=== PATIENT | male | born 1985 | race Caucasian/White ===

== ENCOUNTER 2017-03-24 15:08 | Emergency (ER) | payer SELFPAY ==
[~2017-03-24] VITALS: Ht 180.3 cm; Wt 90.7 kg
[~2017-03-24 15:08] MED LIST: ACET-2267 PO; ACET-575 PO; AGM875T PO; ALPR1T; ALPR1T PO; AMOX500C2 PO; CEPH500C PO; CLIN300C11 PO; GUAN1TAB21; HYDR-3720 PO; HYDR-3820 PO; IBUP800T26 PO; LISD70CA3; LORA-404 PO; LORA2TAB PO; TRAM50TA2 PO; TRM50T PO
[2017-03-24] MEDS ORDERED: cefTRIAXone 1 GM (ROCEPHIN) VIAL IM ONE (16:15)
[2017-03-24] MEDS ORDERED: DEXAMETHASONE PF 10 MG/ML (DECADRON) VIAL IM ONE (16:15)
[2017-03-24] MEDS ORDERED: LIDOCAINE 1% INJ 20 ML (XYLOCAINE) VIAL INJ ONE (16:15)
[2017-03-24] MEDS ORDERED: CEFD300C3 PO (16:17)
[2017-03-24] MEDS ORDERED: DICL50TA4 PO (16:17)
--- NOTE | 2017-03-24 16:17 | ED EENT ---
History of Present Illness General Chief Complaint: Dental Problems/Pain Stated Complaint: R SIDE MOUTH PAIN Source: patient, RN notes reviewed Exam Limitations: no limitations History of Present Illness Time seen by provider: 16:08 Timing/Duration: gradual (over last 3 days) Severity: moderate Location: mouth (right lower jaw), dental (levi/abscess) Prearrival Treatment: over the counter meds (Ora gel) Modifying Factors: Improves With Other (chewing; swallowing make pain worse) Associated Symptoms: facial pain/swelling, sore throat, tooth pain Allergies and Home Medications Allergies Coded Allergies: clindamycin (Verified Allergy, Severe, 09/24/15) Home Medications Acetaminophen 500 Mg Tablet, 500-1,000 MG PO Q6H PRN for PAIN, (Reported) Acetaminophen/Diphenhydramine 1 Each Tablet, 2 TAB PO HS PRN for SLEEP, ( Reported) Cefdinir 300 Mg Capsule, 300 MG PO BID, #20 Ref 0 Prescribed by: MIN SAAVEDRA on 03/24/17 1617 Cephalexin 500 Mg Capsule, 500 MG PO QID, #30 Prescribed by: JOSESITO BRANNON on 09/25/15 1041 Diclofenac Potassium 50 Mg Tablet, 50 MG PO Q8H PRN for DENTAL PAIN/SWELLING, # 30 Ref 0 Prescribed by: MIN SAAVEDRA on 03/24/17 1617 Hydrocodone/Acetaminophen 1 Each Tablet, 1 TAB PO Q4H PRN for PAIN, (Reported) Lorazepam 2 Mg Tablet, 2 MG PO TID, (Reported) Review of Systems Constitutional: see HPI Ears: See HPI, Pain (right ) Mouth: see HPI, pain, swelling Throat: see HPI, pain All Other Systems Reviewed Negative Unless Noted: Yes (Negative excepted noted.) Past Zcpvgvl-Xkheyj-Eawbnc Hx Patient Social History Recent Foreign Travel: No Contact w/Someone Who Travel: No Recent Hopitalizations: No Seasonal Allergies Seasonal Allergies: No Surgeries HX Surgeries: Yes (SHOULDER SURG) Respiratory Hx Respiratory Disorders: No Cardiovascular Hx Cardiac Disorders: No Neurological Hx Neurological Disorders: No Reproductive System Hx Reproductive Disorders: No Genitourinary Hx Genitourinary Disorders: No Gastrointestinal Hx Gastrointestinal Disorders: No Musculoskeletal Hx Musculoskeletal Disorders: No Endocrine Hx Endocrine Disorders: No HEENT HX ENT Disorders: No Cancer Hx Cancer: No Psychosocial Hx Psychiatric Problems: Yes Behavioral Health Disorders: Anxiety Integumentary HX Skin/Integumentary Disorder: No Blood Transfusions Hx Blood Disorders: No Family Medical History Significant Family History: No Pertinent Family Hx Family Medial History: Cardiovascular disease (paternal grandfather) Neoplasm (mother throat and uterine cancer ) Psychosocial problem (maternal grandmother) Physical Exam Vital Signs Vital Sign - Last 12Hours 03/24/17 16:13 Temp 98.7 Pulse 66 Resp 14 B/P (MAP) 151/104 Pulse Ox 98 O2 Delivery Room Air General Appearance: WD/WN, moderate distress Ears: bilateral ear TM normal Mouth/Throat: dental tenderness, mandibular swelling (right), No pharynx swelling, No pharynx tenderness, No tongue swollen, No tonsillar exudate, No tonsillar swelling, No trismus, No uvula swelling, No voice changes Neck: supple, lymphadenopathy (R) Cardiovascular: regular rate, rhythm Respiratory: no respiratory distress Neurologic/Psychiatric: no motor/sensory deficits, alert, oriented x 3 Skin: warm/dry Progress/Results/Core Measures Results/Orders My Orders Orders - MIN SAAVEDRA DO Dexamethasone Pf Injection (Decadron Pf (03/24/17 16:15) Ceftriaxone Injection (Rocephin Injectio (03/24/17 16:15) Lidocaine 1% Injection (Xylocaine 1% Inj (03/24/17 16:15) Medications Given in ED Current Medications Medications Dose Ordered Sig/Magalie Route Start Time Stop Time Status Last Admin Dose Admin Ceftriaxone Sodium 1,000 mg ONCE ONCE IM 03/24/17 16:15 03/24/17 16:16 DC 03/24/17 16:27 1,000 MG Dexamethasone Sodium Phosphate 10 mg ONCE ONCE IM 03/24/17 16:15 03/24/17 16:16 DC 03/24/17 16:27 10 MG Lidocaine HCl 2.1 ml ONCE ONCE INJ 03/24/17 16:15 03/24/17 16:16 DC 03/24/17 16:27 2.1 ML Vital Signs/I&O Vital Sign - Last 12Hours 03/24/17 03/24/17 16:13 16:44 Temp 98.7 98.7 Pulse 66 86 Resp 14 14 B/P (MAP) 151/104 Pulse Ox 98 98 O2 Delivery Room Air Room Air Departure Impression Impression: Primary Impression: Dental abscess Disposition: 01 HOME, SELF-CARE Condition: Stable Departure-Patient Inst. Decision time for Depature: 16:14 Referrals: NO,LOCAL PHYSICIAN (PCP/Family) Primary Care Physician Patient Instructions: Tooth Abscess (DC) Add. Discharge Instructions: All discharge instructions reviewed with patient and/or family. Voiced understanding. NEED TO GET IN WITH A DENTIST DEE DEE FOR DEFINITIVE EVALUATION AND TREATMENT OF YOUR DENTAL CONDITION. Scripts Diclofenac Potassium (Diclofenac Potassium) 50 Mg Tablet 50 MG PO Q8H Y for DENTAL PAIN/SWELLING, #30 TAB 0 Refills Prov: MIN SAAVEDRA DO 03/24/17 Cefdinir (Cefdinir) 300 Mg Capsule 300 MG PO BID for DENTAL ABSCESS, #20 CAP 0 Refills Prov: MIN SAAVEDRA DO 03/24/17 MIN SAAVEDRA DO Mar 24, 2017 16:17
[2017-03-24 16:44] VITALS: BP 150/98
== END 2017-03-24 16:44 | disposition home or self-care (01) ==
LOC: EDUNIT# 15:08 → ER 15:09
DX: K04.7 Periapical abscess without sinus (principal); F41.9 Anxiety disorder, unspecified; Z98.890 Other specified postprocedural states
CPT/HCPCS: 96372; 99284

== ENCOUNTER 2017-04-07 11:53 | Emergency (ER) | payer SELFPAY ==
[~2017-04-07] VITALS: Ht 180.3 cm; Wt 93.0 kg
[~2017-04-07 11:53] MED LIST changes: +CEFD300C3 PO; +DICL50TA4 PO
--- NOTE | 2017-04-07 13:00 | Diagnostic Imaging Report ---
INDICATION: Redness and swelling, difficulty moving. FINDINGS: There is no abnormal periosteal reaction. No site of abnormal bone production or destruction. There is questionable well-corticated smooth lucency involving the medial margin distal shaft third metatarsal seen in the oblique view. This may be a prominent vascular groove as it is not appreciable in any of the additional views. Correlate with any trauma or an acute onset of pain to that level to more confidently exclude a possible incomplete nondisplaced fracture. Otherwise the osseous structures had an unremarkable appearance. There is no soft tissue gas or foreign body. IMPRESSION: No gas, foreign body or acute periosteal reaction. Seen only in one view there is questionable incomplete lucencies distal shaft third metatarsal likely vascular groove. However in the appropriate scenario extra-articular nondisplaced incomplete fracture could not be convincingly excluded. No other significant finding. Dictated by: Dictated on workstation # [id number]
--- NOTE | 2017-04-07 14:17 | ED Lower Extremity ---
General Chief Complaint: Lower Extremity Stated Complaint: LT FOOT PAIN/SWELLING Nursing Triage Note: pt reports intermittent left foot swelling, bruising, and redness of unknown cause x 2 weeks but worsening this week. states hard to walk when getting out of bed and pain is increasing. states when he raises his 2-5th toes pain radiates. Nursing Sepsis Screen: No Definite Risk Source: patient, spouse Exam Limitations: no limitations History of Present Illness Time seen by provider: 14:16 Initial Comments 31 yo male patient presents to the ED with c/o left foot pain, swelling, and bruising for approx 2 wks. Denies known injury. Pain radiates to the 2-5th toes. Location Injury Occurred: denies known injury Onset: other (2 wks) Method of Injury: unknown Modifying Factors: Worse With Other (worse with ambulation) Allergies and Home Medications Allergies Coded Allergies: clindamycin (Verified Allergy, Severe, 09/24/15) Home Medications Acetaminophen 500 Mg Tablet, 500-1,000 MG PO Q6H PRN for PAIN, (Reported) Hydrocodone/Acetaminophen 1 Each Tablet, 1 EACH PO Q4H PRN for PAIN, #14 Ref 0 Prescribed by: ALPHONSE GÓMEZ on 04/07/17 1434 Constitutional: No chills, No fever, No malaise Respiratory: No cough, No dyspnea on exertion, No short of breath Cardiovascular: No chest pain, No palpitations Musculoskeletal: see HPI, joint pain, joint swelling Skin: change in color (ecchymosis and redness left foot), No lesions, No rash Psychiatric/Neurological: Pre-Existing Deficit (chronic numbness and tingling of the feet (has not seen a doctor for this)) All Other Systems Reviewed Negative Unless Noted: Yes (Negative excepted noted.) Past Fukokcu-Iskmlu-Hzxknh Hx Patient Social History Alcohol Use: Regular Use Recreational Drug Use: No Smoking Status: Current Everyday Smoker Type Used: Cigarettes 2nd Hand Smoke Exposure: Yes Recent Foreign Travel: No Contact w/Someone Who Travel: No Recent Infectious Disease Expo: No Recent Hopitalizations: No Immunizations Up To Date Tetanus Booster (TDap): More than 5yrs Seasonal Allergies Seasonal Allergies: No Surgeries HX Surgeries: Yes (SHOULDER SURG) Surgeries: Orthopedic Respiratory Hx Respiratory Disorders: No Cardiovascular Hx Cardiac Disorders: No Neurological Hx Neurological Disorders: No Reproductive System Hx Reproductive Disorders: No Genitourinary Hx Genitourinary Disorders: No Gastrointestinal Hx Gastrointestinal Disorders: No Musculoskeletal Hx Musculoskeletal Disorders: No Endocrine Hx Endocrine Disorders: No HEENT HX ENT Disorders: No Cancer Hx Cancer: No Psychosocial Hx Psychiatric Problems: Yes Behavioral Health Disorders: Anxiety Integumentary HX Skin/Integumentary Disorder: No Blood Transfusions Hx Blood Disorders: No Reviewed Nursing Assessment Reviewed/Agree w Nursing PMH: Yes Family Medical History Significant Family History: No Pertinent Family Hx Family Medial History: Cardiovascular disease (paternal grandfather) Neoplasm (mother throat and uterine cancer ) Psychosocial problem (maternal grandmother) Physical Exam Vital Signs Vital Sign - Last 12Hours 04/07/17 12:14 Temp 98.8 Pulse 97 Resp 18 B/P (MAP) 135/84 Pulse Ox 97 O2 Delivery Room Air Capillary Refill : Less Than 3 Seconds General Appearance: WD/WN, no apparent distress Cardiovascular: normal peripheral pulses, no edema Legs: bilateral leg non-tender, bilateral leg normal inspection, bilateral leg normal range of motion, bilateral leg no evidence of injury Knees: bilateral knee non-tender, bilateral knee normal inspection, bilateral knee normal range of motion, bilateral knee no evidence of injury Ankles: bilateral ankle non-tender, bilateral ankle normal inspection, bilateral ankle normal range of motion, bilateral ankle no evidence of injury Feet: right foot non-tender, right foot normal inspection, bilateral foot normal range of motion, right foot no evidence of injury, left foot bone tenderness (left 2-4th distal metacarpals), left foot ecchymosis (left 2-4th distal metacarpals), left foot pain, left foot soft tissue tenderness (left 2- 4th distal metacarpals), left foot swelling (left 2-4th distal metacarpals) Neurologic/Tendon: normal sensation, normal motor functions, normal tendon functions, responds to pain, no evidence tendon injury Neurologic/Psychiatric: no motor/sensory deficits, alert, normal mood/affect, oriented x 3 Skin: normal color, warm/dry, ecchymosis (left 2-4th distal metacarpals) Progress/Results/Core Measures Results/Orders My Orders Orders - ALPHONSE GÓMEZ Foot, Left, 3 Views (04/07/17 12:19) Steplite (04/07/17 14:23) Vital Signs/I&O Vital Sign - Last 12Hours 04/07/17 04/07/17 12:14 14:43 Temp 98.8 98.8 Pulse 97 97 Resp 18 18 B/P (MAP) 135/84 Pulse Ox 97 97 O2 Delivery Room Air Blood Pressure Mean: 101 Diagnostic Imaging Diagonstic Imaging: Xray Plain Films/CT/US/NM/MRI: other (left foot) Comments FINDINGS: There is no abnormal periosteal reaction. No site of abnormal bone production or destruction. There is questionable well-corticated smooth lucency involving the medial margin distal shaft third metatarsal seen in the oblique view. This may be a prominent vascular groove as it is not appreciable in any of the additional views. Correlate with any trauma or an acute onset of pain to that level to more confidently exclude a possible incomplete nondisplaced fracture. Otherwise the osseous structures had an unremarkable appearance. There is no soft tissue gas or foreign body. IMPRESSION: No gas, foreign body or acute periosteal reaction. Seen only in one view there is questionable incomplete lucencies distal shaft third metatarsal likely vascular groove. However in the appropriate scenario extra-articular nondisplaced incomplete fracture could not be convincingly excluded. No other significant finding. Dictated by: Dictated on workstation # [id number] Reviewed: Reviewed by Me (radiology report reviewed by me) Departure Communication Progress Notes Is question of a lucency over the shaft of the third metatarsal. Patient does show bruising, swelling, and tenderness in this location. Therefore, this is most likely a nondisplaced or incomplete fracture. Patient placed on a steplite boot. Plan for discharge to home. Impression Impression: Primary Impression: Fracture of metacarpal Qualified Codes: S62.353A - Nondisplaced fracture of shaft of third metacarpal bone, left hand, initial encounter for closed fracture Disposition: 01 HOME, SELF-CARE Condition: Improved Departure-Patient Inst. Decision time for Depature: 14:25 Referrals: NO,LOCAL PHYSICIAN (PCP) Primary Care Physician ESA CROWE MD Patient Instructions: Foot Fracture (DC) Add. Discharge Instructions: All discharge instructions reviewed with patient and/or family. Voiced understanding. Medications as directed. Elevate the left foot on pillows. Ice pack for 20 min intervals as needed for pain. Boot as instructed. Follow- up with Dr. Crowe or the primary care provider of your choice for recheck within the next 7 days. Return to the emergency department for worsened symptoms or any other concerns. Scripts Hydrocodone/Acetaminophen (Hydrocodon -Acetaminophen 5-325) 1 Each Tablet 1 EACH PO Q4H Y for PAIN, #14 TAB 0 Refills Prov: ALPHONSE GÓMEZ 04/07/17 Work/School Note: [employer] ALPHONSE GÓMEZ Apr 07, 2017 2:17 pm
[2017-04-07] MEDS ORDERED: HYDR-3812 PO (14:34)
[2017-04-07 14:43] VITALS: BP 135/84
--- OUTSIDE RECORDS SUMMARY | 2017-04-08 02:09 | XMS REPORT ---
Author Author WALKER MENDOZA [facility] e[employer] Address Unknown Phone Unavailable Care Team Providers Care Compounder Flavorings Name Role Phone WALKER MENDOZA CP Unavailable Allergies, Adverse Reactions, Alerts Substance Reaction Event Type N.K.D.A. Info Not Available Non Drug Allergy Problems Problem Type Condition Code Onset Dates Condition Status Problem Dental caries pit and fissure 521.06 Active Problem Cervicalgia 723.1 Active Problem Pain in joint, shoulder region 719.41 Active Assessment Nevus D22.9 Active Medications Medication Code System Code Instructions Start Date End Date Status Dosage Ativan NDC 0 2 mg 3 times a day 1 tablet TID Procedures Procedure Coding System Code Date Office Visit, Est Pt., Level 3 CPT-4 14889 Jul 03, 2015 Vital Signs Date/Time: Jul 03, 2015 Temperature 97.1 F Weight 202 lbs Height 71 in BMI 28.17 Index Blood Pressure Diastolic 100 mmHg Blood Pressure Systolic 140 mmHg Cardiac Monitoring Heart Rate 80 bpm Results No Known Results Summary Purpose eClinicalWorks Submission
--- OUTSIDE RECORDS SUMMARY | 2017-04-08 02:09 | XMS REPORT ---
Author Author ARIS CARRERO Organization [facility] Address [address] [place] [address] Care Team Providers Care Train Operations Supervisor Name Role Phone ARIS CARRERO Unavailable PROBLEMS Type Condition ICD9-CM Code [id number] Code Onset Dates Condition Status SNOMED Code Problem Pain in joint, shoulder region 719.41 Active 765092836 Problem Dental caries pit and fissure 521.06 Active 224860615 Problem Cervicalgia 723.1 Active 93580062 ALLERGIES Substance Reaction Event Type Date Status Clindamycin HCl anaphylaxis Drug Allergy Jul, Active SOCIAL HISTORY No smoking Hx information available PLAN OF CARE Activity Details Follow Up TE 1 hour Reason: VITAL SIGNS Height 71 in 2016-07-31 Heart Rate 99 bpm 2016-07-31 Blood pressure systolic 147 mmHg 2016-07-31 Blood pressure diastolic 100 mmHg 2016-07-31 MEDICATIONS No Known Medications RESULTS No Results PROCEDURES Procedure Date Ordered Related Diagnosis Body Site COMP ORAL EVALUATION - NEW/EST PT Jul 31, 2016 INTRAORL-PERIAPICAL 1 FILM 90288 Jul 31, 2016 PANORAMIC FILM SEE ALSO CODE [id number] Jul 31, 2016 INTRAORL-PERIAPICAL EA ADD FILM Jul 31, 2016 IMMUNIZATIONS No Known Immunizations
--- OUTSIDE RECORDS SUMMARY | 2017-04-08 02:10 | XMS REPORT | Continuity of Care Document ---
Author Author Formerly [facility] Address Unknown Phone Unavailable Allergies Active Description Code Type Severity Reaction Onset Reported/Identified Relationship to Patient Clinical Status Yes No Known Drug Allergies [id number] Drug Allergy Mild N/A 03/21/2009 Yes clindamycin [id number] Drug Allergy Severe N/A 09/24/2015 Medications Problems Date Dx Coded Attending Type Code Diagnosis Diagnosed By 10/29/2008 SCOTT JARRELL PHD 300.00 AN ANXIETY UNSPEC 10/29/2008 SCOTT JARRELL PHD 311 MO DEPRESSIVE DISORDER NOS 10/29/2008 JOVANY MONTAÑO APRN R 300.00 AN ANXIETY UNSPEC 10/29/2008 JOVANY MONTAÑO APRN R 311 MO DEPRESSIVE DISORDER NOS 09/17/2013 OWEN MONTAÑO APRNINA R 521.06 DENTAL CARIES PIT AND FISSURE 09/17/2013 SABRA FLOWERS JOVANY R 719.41 PAIN IN JOINT INVOLVING SHOULDER REGION 09/17/2013 OWEN MONTAÑO APRNINA R 723.1 CERVICALGIA 04/22/2014 ALPHONSE KUMAR Ot 521.00 UNSPEC DENTAL CARIES 04/22/2014 ALPHONSE KUMAR Ot 522.5 PERIAPICAL ABSCESS 04/22/2014 ALPHONSE KUMAR Ot 525.9 DENTAL DISORDER NOS 07/03/2015 TONJA TAMAYO MD Ot 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, U 09/23/2015 ALPHONSE KUMAR Ot F17.210 NICOTINE DEPENDENCE, CIGARETTES, UNCOMPL 09/23/2015 ALPHONSE KUMAR Ot K02.9 DENTAL CARIES, UNSPECIFIED 09/23/2015 ALPHONSE KUMAR Ot L03.211 CELLULITIS OF FACE 09/23/2015 ALPHONSE KUMAR Ot R59.0 LOCALIZED ENLARGED LYMPH NODES 09/25/2015 CHINO SOTELO MD Ot F17.210 NICOTINE DEPENDENCE, CIGARETTES, UNCOMPL 09/25/2015 CHINO SOTELO MD Ot K02.9 DENTAL CARIES, UNSPECIFIED 09/25/2015 DEEPAK HALL, [place] Ot K04.7 PERIAPICAL ABSCESS WITHOUT SINUS 09/25/2015 DEEPAK HALL, [place] L03.211 CELLULITIS OF FACE 09/25/2015 DEEPAK HALL, [place] T78.3XXA ANGIONEUROTIC EDEMA, INITIAL ENCOUNTER 09/25/2015 DEEPAK HALL, [place] F17.210 09/25/2015 DEEPAK HALL, [place] K02.9 09/25/2015 DEEPAK HALL, [place] K04.7 09/25/2015 DEEPAK HALL, [place] T78.3XXA 06/04/2016 JENY HALL, CHINO [place] Ot K02.9 DENTAL CARIES, UNSPECIFIED 06/04/2016 JENY HALL, [place] K08.9 DISORDER OF TEETH AND SUPPORTING STRUCTU 06/10/2016 JENY HALL, [place] K02.9 DENTAL CARIES, UNSPECIFIED 06/10/2016 JENY HALL, [place] K08.9 DISORDER OF TEETH AND SUPPORTING STRUCTU 03/24/2017 MIN SAAVEDRA DO Ot F41.9 ANXIETY DISORDER, UNSPECIFIED 03/24/2017 QUENTIN DO, [place] K04.7 PERIAPICAL ABSCESS WITHOUT SINUS 03/24/2017 MIN SAAVEDRA DO Ot K13.79 OTHER LESIONS OF ORAL MUCOSA 03/24/2017 QUENTIN DOMIN Ot Z98.890 OTHER SPECIFIED POSTPROCEDURAL STATES 03/26/2017 QUENTIN DOMIN Ot F41.9 ANXIETY DISORDER, UNSPECIFIED 03/26/2017 MIN SAAVEDRA DO Ot K04.7 PERIAPICAL ABSCESS WITHOUT SINUS 03/26/2017 MIN SAAVEDRA DO Ot K13.79 OTHER LESIONS OF ORAL MUCOSA 03/26/2017 QUENTIN DO, [place] Z98.890 OTHER SPECIFIED POSTPROCEDURAL STATES 03/27/2017 QUENTIN DOMIN Ot F41.9 ANXIETY DISORDER, UNSPECIFIED 03/27/2017 QUENTIN DOMIN Ot K04.7 PERIAPICAL ABSCESS WITHOUT SINUS 03/27/2017 QUENTIN DOMIN Ot K13.79 OTHER LESIONS OF ORAL MUCOSA 03/27/2017 QUENTIN DOMIN Ot Z98.890 OTHER SPECIFIED POSTPROCEDURAL STATES Procedures Code [place] [address] URINE DRUG SCREEN (IN-HOUSE) 09/17/2013 Results Encounters ACCT No. Visit Date/Time Discharge Status Pt. Type Provider Facility Loc./Unit Complaint [id number] 09/17/2013 10:29:00 09/17/2013 23: 59:59 CLS Outpatient SABRA DANCE MASTERJOVANY [id number] 10/29/2008 08:36:00 10/29/2008 23: 59:59 CLS Outpatient WESLY HOLLIS, SCOTT Singer [id number] 03/24/2017 15:09:00 2016 16:44:00 DIS Emergency MIN SAAVEDRA DO [facility] ER R SIDE MOUTH PAIN [id number] 06/04/2016 13:06:00 2015 13:59:00 DIS Emergency CHINO FERMIN MD [facility] ER TOOTH ACHE/R SIDE MOUTH SWELLING INTO NECK [id number] 09/24/2015 16:29:00 2015 10:47:00 DIS Inpatient CHINO SOTELO MD [facility] 4TH EXTENSIVE CELLULITIS/ABSCESS LL JAW, FAILED OP ANTI [id number] 09/23/2015 10:50:00 2015 23:59:59 CLS Emergency ALPHONSE KUMAR [facility] ER DENTAL ABSCESS [id number] 07/03/2015 14:00:00 2014 14:53:00 DIS Emergency TONJA TAMAYO MD [facility] ER WOUND CHECK [id number] 04/22/2014 13:29:00 2013 14:31:00 DIS Emergency ALPHONSE KUMAR [facility] ER DENTAL PAIN [id number] 07/03/2015 14:01:00 Document Registration
== END 2017-04-07 14:43 | disposition home or self-care (01) ==
LOC: EDUNIT# 11:53 → ER 11:55
DX: S62.309A Unspecified fracture of unspecified metacarpal bone, initial encounter for closed fracture (principal); F41.9 Anxiety disorder, unspecified; F17.210 Nicotine dependence, cigarettes, uncomplicated; X58.XXXA Exposure to other specified factors, initial encounter
CPT/HCPCS: 73630; 99283

== ENCOUNTER 2019-04-12 10:24 | Emergency (ER) | payer SELFPAY | END 2019-04-12 12:16 | disposition home or self-care (01) | LOC: ER 10:24 ==

== ENCOUNTER → 2020-06-17 | Emergency (ER) | payer BC ==
[~2020-06-17] VITALS: Ht 180.3 cm; Wt 108.8 kg
[~2020-06-17] MED LIST changes: +ACHD5005 PO; +ACHYD1T PO; +AMOX-358 PO; +HOLD METFORMIN - RECEIVED CONTRAST 20 ML VIAL IV SCH; -HYDR-3820 PO; +IOHEXOL 350 MG/ML 100 ML (OMNIPAQUE 350) VIAL IV ONE; +KCL 20 MEQ TAB (K-DUR) PO ONE; +KETOROLAC 30 MG/ML VIAL IVP ONE; +NS 100 ML (IVPB) BAG IV ONE; +NS IV 1000 ML 1,000 ML IV SCH; +ONDA8TAB13 PO; +ONDANSETRON 4 MG/2 ML (SDV) Z0FRAN IVP ONE
--- NOTE | 2020-06-17 15:07 | ED Abdominal Pain ---
General Stated Complaint: ABD PAIN Source of Information: Patient Exam Limitations: No Limitations History of Present Illness Date Seen by Provider: Jun 17, 2020 Time Seen by Provider: 15:07 Initial Comments To ER with reports of suprapubic abdominal pain for 3-4 days with loose stools. Intermittent mild nausea. No fevers. Timing/Duration: 3-4 Days Severity/Quality: Moderate Location: Periumbilical, Suprapubic Radiation: No Radiation Activities at Onset: None Allergies and Home Medications Allergies Coded Allergies: clindamycin (Verified Allergy, Severe, 09/24/15) Home Medications No Active Prescriptions or Reported Meds Patient Home Medication List Home Medication List Reviewed: Yes Review of Systems Review of Systems Constitutional: see HPI; No chills, No fever EENTM: No Symptoms Reported Respiratory: No Symptoms Reported Cardiovascular: No Symptoms Reported Gastrointestinal: See HPI, Abdominal Pain, Nausea Genitourinary: No Symptoms Reported Musculoskeletal: no symptoms reported Skin: no symptoms reported Psychiatric/Neurological: No Symptoms Reported Endocrine: No Symptoms Reported Hematologic/Lymphatic: No Symptoms Reported Past Ravediz-Upyukp-Hodmog Hx Patient Social History Alcohol Beverage of Choice: Beer Type Used: Cigarettes 2nd Hand Smoke Exposure: Yes Recent Foreign Travel: No Contact w/Someone Who Travel: No Recent Hopitalizations: No Immunizations Up To Date Tetanus Booster (TDap): More than 5yrs Seasonal Allergies Seasonal Allergies: No Past Medical History Surgeries: Yes (rotator cuff) Orthopedic Respiratory: No Cardiac: No Neurological: No Reproductive Disorders: No Genitourinary: No Gastrointestinal: No Musculoskeletal: No Endocrine: No HEENT: No Cancer: No Psychosocial: Yes Anxiety Integumentary: No Blood Disorders: No Family Medical History Cardiovascular disease (paternal grandfather) Neoplasm (mother throat and uterine cancer ) Psychosocial problem (maternal grandmother) No Pertinent Family Hx Physical Exam Vital Signs Vital Signs - First Documented 06/17/20 15:00 Temp 36.9 Pulse 135 Resp 18 B/P (MAP) 147/82 (103) Pulse Ox 97 O2 Delivery Room Air Capillary Refill : Height/Weight/BMI Height: 5'11.00" Weight: 200lbs. 6.0oz. 90.937052cg; 28.31 BMI Method:Stated General Appearance: WD/WN, no apparent distress Respiratory: lungs clear, normal breath sounds, no respiratory distress, no accessory muscle use Cardiovascular: no murmur, tachycardia Gastrointestinal: normal bowel sounds, soft, tenderness Extremities: normal range of motion, non-tender Neurologic/Psychiatric: alert, normal mood/affect, oriented x 3 Skin: normal color, warm/dry Progress/Results/Core Measures Results/Orders Lab Results Laboratory Tests Test 06/17/20 15:30 06/17/20 15:38 Range/Units White Blood Count 6.9 4.3-11.0 10^3/uL Red Blood Count 3.97 L 4.30-5.52 10^6/uL Hemoglobin 15.6 13.3-17.7 g/dL Hematocrit 45 40-54 % Mean Corpuscular Volume 112 H 80-99 fL Mean Corpuscular Hemoglobin 39 H 25-34 pg Mean Corpuscular Hemoglobin Concent 35 32-36 g/dL Red Cell Distribution Width 13.3 10.0-14.5 % Platelet Count 214 130-400 10^3/uL Mean Platelet Volume 9.5 9.0-12.2 fL Immature Granulocyte % (Auto) 0 % Neutrophils (%) (Auto) 69 42-75 % Lymphocytes (%) (Auto) 22 12-44 % Monocytes (%) (Auto) 6 0-12 % Eosinophils (%) (Auto) 2 0-10 % Basophils (%) (Auto) 1 0-10 % Neutrophils # (Auto) 4.7 1.8-7.8 10^3/uL Lymphocytes # (Auto) 1.5 1.0-4.0 10^3/uL Monocytes # (Auto) 0.4 0.0-1.0 10^3/uL Eosinophils # (Auto) 0.1 0.0-0.3 10^3/uL Basophils # (Auto) 0.0 0.0-0.1 10^3/uL Immature Granulocyte # (Auto) 0.0 0.0-0.1 10^3/uL Sodium Level 136 135-145 MMOL/L Potassium Level 3.1 L 3.6-5.0 MMOL/L Chloride Level 101 98-107 MMOL/L Carbon Dioxide Level 21 21-32 MMOL/L Anion Gap 14 5-14 MMOL/L Blood Urea Nitrogen 4 L 7-18 MG/DL Creatinine 0.72 0.60-1.30 MG/DL Estimat Glomerular Filtration Rate > 60 BUN/Creatinine Ratio 6 Glucose Level 132 H 70-105 MG/DL Calcium Level 9.0 8.5-10.1 MG/DL Corrected Calcium 9.1 8.5-10.1 MG/DL Total Bilirubin 0.9 0.1-1.0 MG/DL Aspartate Amino Transf (AST/SGOT) 139 H 5-34 U/L Alanine Aminotransferase (ALT/SGPT) 38 0-55 U/L Alkaline Phosphatase 77 40-136 U/L Total Protein 8.0 6.4-8.2 GM/DL Albumin 3.9 3.2-4.5 GM/DL Urine Color YELLOW Urine Clarity CLEAR Urine pH 6.0 5-9 Urine Specific [place] 1.020 1.016-1.022 Urine Protein NEGATIVE NEGATIVE Urine Glucose (UA) NEGATIVE NEGATIVE Urine Ketones TRACE H NEGATIVE Urine Nitrite NEGATIVE NEGATIVE Urine Bilirubin 1+ H NEGATIVE Urine Urobilinogen 1.0 < = 1.0 MG/DL Urine Leukocyte Esterase NEGATIVE NEGATIVE Urine RBC (Auto) NEGATIVE NEGATIVE Urine RBC NONE /HPF Urine WBC RARE /HPF Urine Squamous Epithelial Cells 2-5 /HPF Urine Crystals NONE /LPF Urine Bacteria NEGATIVE /HPF Urine Casts NONE /LPF Urine Mucus MODERATE H /LPF Urine Culture Indicated NO My Orders Orders - EMILIANO HELMS APRN Cbc With Automated Diff (06/17/20 15:06) Comprehensive Metabolic Panel (06/17/20 15:06) Ua Culture If Indicated (06/17/20 15:06) Ed Iv/Invasive Line Start (06/17/20 15:06) Ct Abdomen/Pelvis W (06/17/20 15:06) Ketorolac Injection (Toradol Injection) (06/17/20 15:15) Ondansetron Injection (Zofran Injectio (06/17/20 15:15) Ns Iv 1000 Ml (Sodium Chloride 0.9%) (06/17/20 15:15) Iohexol Injection (Omnipaque 350 Mg/Ml 1 (06/17/20 16:00) Received Contrast (Hold Metformin- Contr (06/17/20 16:00) Ns (Ivpb) (Sodium Chloride 0.9% Ivpb Bag (06/17/20 16:00) Potassium Chloride (Tablet) (K Dur Table (06/17/20 16:00) Medications Given in ED Current Medications Medications Dose Ordered Sig/Magalie Route Start Time Stop Time Status Last Admin Dose Admin Iohexol 100 ml ONCE ONCE IV 10/29/20 16:00 06/17/20 16:01 DC 06/17/20 16:14 100 ML Ketorolac Tromethamine 15 mg ONCE ONCE IVP 06/17/20 15:15 06/17/20 15:16 DC 06/17/20 15:29 15 MG Ondansetron HCl 8 mg ONCE ONCE IVP 06/17/20 15:15 06/17/20 15:16 DC 06/17/20 15:25 8 MG Potassium Chloride 40 meq ONCE ONCE PO 06/17/20 16:00 06/17/20 16:01 DC 06/17/20 16:35 40 MEQ Sodium Chloride 100 ml ONCE ONCE IV 06/17/20 16:00 06/17/20 16:01 DC 06/17/20 16:14 80 ML Vital Signs/I&O 06/17/20 15:00 Temp 36.9 Pulse 135 Resp 18 B/P (MAP) 147/82 (103) Pulse Ox 97 O2 Delivery Room Air Departure Communication (Admissions) 1645-heart rate has come down to 98. He denied needing anything for pain or nausea here CT shows sign of possible early sigmoid diverticulitis. I'll put him on Augmentin and discharged home. Impression Primary Impression: Sigmoid diverticulitis Disposition: HOME, SELF-CARE Condition: Improved Departure-Patient Inst. Decision time for Depature: 16:47 Referrals: JORGE HOLGUIN BRETT D DO KIDO, TAKAAKI MD NO,LOCAL PHYSICIAN (PCP) Primary Care Physician Patient Instructions: Diverticulitis (DC) Add. Discharge Instructions: 1. Clear liquids only for the next 24 hours. Take the antibiotics and the pain medication as well as nausea medication as needed. Return to ER for high fevers or worsening pain or any other concerns. Call a surgeon of your choosing next week to make an appointment to be seen for follow-up. Scripts Ondansetron (Ondansetron Odt) 8 Mg Tab.rapdis 8 MG PO Q6H PRN for NAUSEA/VOMITING, #10 TAB Prov: EMILIANO HELMS APRN 06/17/20 Amoxicillin/Potassium Clav (Augmentin 875-125 Tablet) 1 Each Tablet 1 EACH PO BID, #14 TAB 0 Refills Prov: EMILIANO HELMS APRN 06/17/20 Work/School Note: Work Release Form Date Seen in the Emergency Department: Jun 17, 2020 Return to Work: Jun 19, 2020 EMILIANO HELMS APRN Jun 17, 2020 15:07
[2020-06-17 15:41] LABS: BASOPHILS % (AUTO) 1 % (0-10); EOSINOPHILS # (AUTO) 0.1 10^3/uL (0.0-0.3); EOSINOPHILS % (AUTO) 2 % (0-10); HEMATOCRIT 45 % (40-54); HEMOGLOBIN 15.6 g/dL (13.3-17.7); LYMPHOCYTES # (AUTO) 1.5 10^3/uL (1.0-4.0); LYMPHOCYTES % (AUTO) 22 % (12-44); MEAN CORPUSCULAR HEMOGLOBIN 39 pg (25-34); MEAN CORPUSCULAR HGB CONC 35 g/dL (32-36); MEAN CORPUSCULAR VOLUME 112 fL (80-99); MEAN PLATELET VOLUME 9.5 fL (9.0-12.2); MONOCYTES # (AUTO) 0.4 10^3/uL (0.0-1.0); MONOCYTES % (AUTO) 6 % (0-12); NEUTROPHILS # (AUTO) 4.7 10^3/uL (1.8-7.8); NEUTROPHILS % (AUTO) 69 % (42-75); PLATELET COUNT 214 10^3/uL (130-400); WHITE BLOOD COUNT 6.9 10^3/uL (4.3-11.0)
[2020-06-17 15:47] LABS: CLARITY,URINE CLEAR; COLOR,URINE YELLOW; GLUCOSE, URINE (UA) NEGATIVE (NEGATIVE); KETONES,URINE TRACE (NEGATIVE); LEUKOCYTE ESTERASE ,URINE NEGATIVE (NEGATIVE); NITRITE,URINE NEGATIVE (NEGATIVE); PROTEIN,URINE NEGATIVE (NEGATIVE)
[2020-06-17 15:50] LABS: ALBUMIN 3.9 GM/DL (3.2-4.5); CHLORIDE 101 MMOL/L (98-107); POTASSIUM 3.1 MMOL/L (3.6-5.0); SODIUM 136 MMOL/L (135-145)
[2020-06-17 15:52] LABS: GLUCOSE 132 MG/DL (70-105)
[2020-06-17 15:53] LABS: CARBON DIOXIDE 21 MMOL/L (21-32)
[2020-06-17 15:54] LABS: BILIRUBIN,TOTAL 0.9 MG/DL (0.1-1.0)
[2020-06-17 15:56] LABS: ALKALINE PHOSPHATASE 77 U/L (40-136); CREATININE SERUM 0.72 MG/DL (0.60-1.30); GFR ESTIMATED > 60
[2020-06-17 15:57] LABS: BUN/CREATININE RATIO 6
[2020-06-17 15:59] LABS: ALANINE AMINOTRANSFERASE 38 U/L (0-55)
[2020-06-17 16:07] LABS: BACTERIA,URINE NEGATIVE /HPF; BILIRUBIN,URINE 1+ (NEGATIVE); WBC,URINE RARE /HPF
--- NOTE | 2020-06-17 16:42 | Diagnostic Imaging Report ---
PROCEDURE: CT abdomen and pelvis with contrast. TECHNIQUE: Multiple contiguous axial images were obtained through the abdomen and pelvis after administration of intravenous contrast. Auto Exposure Controls were utilized during the CT exam to meet ALARA standards for radiation dose reduction. All CT scans use one or more of the following dose optimizing techniques: automated exposure control, MA and/or KvP adjustment based on patient size and exam type or iterative reconstruction. DATE: June 17, 2020. COMPARISON: CT abdomen and pelvis June 04, 2007. INDICATION: 35-year-old male, mid and lower abdominal pain for four days. FINDINGS: There is minimal atelectasis in the right lower lobe. The heart is not enlarged. There is no pericardial effusion. The liver is unremarkable in size and contour. There is no identified liver lesion. The main, right and left portal veins are patent. The gallbladder is unremarkable. There is no identified intrahepatic or extrahepatic bile duct dilation. The main pancreatic duct is not abnormally dilated. Unremarkable appearance of the pancreatic parenchyma. The spleen is normal in size. The adrenal glands are unremarkable. Unremarkable appearance of the renal parenchyma. The urinary collecting systems are not distended. There is no identified renal or ureteral stone. The urinary bladder is collapsed and not well evaluated. There is diverticulosis. There is mild wall thickening of the mid sigmoid colon. There is fatty wall thickening of the proximal transverse colon and right colon consistent with chronic colitis. The appendix is unremarkable and well seen on axial image 63 and adjacent sequential images. There is no free intraperitoneal air. There is no drainable fluid collection. There is no free pelvic fluid. The intestinal tract is not distended. There is no identified abnormally enlarged lymph node in the abdomen or pelvis which meets CT size criteria for adenopathy. There is moderate disc height loss at L5-S1. There is no acute bony abnormality. IMPRESSION: CT abdomen and pelvis: 1. Mild wall thickening of the mid sigmoid colon which is in an area of diverticular disease. This may relate to early findings of diverticulitis. A nonspecific colitis is also considered. 2. Fatty wall thickening of the proximal transverse colon and right colon consistent with chronic colitis. Dictated by: Dictated on workstation # [id number]
[2020-06-17 16:55] VITALS: BP 141/99
== END ==
LOC: EDUNIT# 14:34 → ER 14:35
DX: K57.32 Diverticulitis of large intestine without perforation or abscess without bleeding (principal); Z82.49 Family history of ischemic heart disease and other diseases of the circulatory system; Z80.49 Family history of malignant neoplasm of other genital organs; Z80.1 Family history of malignant neoplasm of trachea, bronchus and lung; Z77.22 Contact with and (suspected) exposure to environmental tobacco smoke (acute) (chronic); Z88.1 Allergy status to other antibiotic agents
CPT/HCPCS: 36415; 74177; 80053; 81000; 85025

== ENCOUNTER 2021-01-17 13:29 | Emergency (ER) | payer SELFPAY ==
[~2021-01-17] VITALS: Ht 180 cm; Wt 108.8 kg
[~2021-01-17 13:29] MED LIST changes: -CLIN300C11 PO; +CLIN300C12 PO; -HOLD METFORMIN - RECEIVED CONTRAST 20 ML VIAL IV SCH; -IOHEXOL 350 MG/ML 100 ML (OMNIPAQUE 350) VIAL IV ONE; -KCL 20 MEQ TAB (K-DUR) PO ONE; -KETOROLAC 30 MG/ML VIAL IVP ONE; -NS 100 ML (IVPB) BAG IV ONE; -NS IV 1000 ML 1,000 ML IV SCH; -ONDANSETRON 4 MG/2 ML (SDV) Z0FRAN IVP ONE
--- NOTE | 2021-01-17 13:58 | ED Lower Extremity ---
General Chief Complaint: Lower Extremity Stated Complaint: LOWER EXT SWELLING/NUMBESS Nursing Triage Note: Patient reports bilateral lower extremity numbness and tingling x 1 month. denies anything making it better or worse. reports some days are better and other days are worse . Nursing Sepsis Screen: No Definite Risk Source: patient Exam Limitations: no limitations History of Present Illness Date Seen by Provider: January 17, 2021 Time Seen by Provider: 13:40 Initial Comments Patient is a 35-year-old male who presents to the emergency department today with a chief complaint of numbness in bilateral feet with "electric-like shocks" that occasionally comes through his toes into his lower legs. He states that the symptoms have been ongoing for about a month. Patient states that he has not had any blood work done or had a General well patient visit for at least 7 years. He did have a visit with a doctor about 7 or 8 months ago where he had a lesion removed off his nose but no blood work done at that time. Patient states that his urine has been very dark for at least a year. He attributed that to working outside and walking around a little dehydrated. He denies any increased thirst or increased urination. He denies increased hunger. He states that he is pretty much immobile over the course of the last month secondary to the pain and numbness in his feet. He denies any bowel or bladder incontinence. He denies back pain. Patient states that when he walks his feet are so numb that he often times feels like he is going to lose his balance. All other review of systems reviewed and negative except as stated above. Onset: other Severity: severe Pain/Injury Location: bilateral foot Method of Injury: unknown Allergies and Home Medications Allergies Coded Allergies: clindamycin (Verified Allergy, Severe, 09/24/15) Home Medications Amoxicillin/Potassium Clav 1 Each Tablet, 1 EACH PO BID Prescribed by: EMILIANO HELMS on 06/17/20 1649 Cephalexin 500 Mg Tablet, 500 MG PO TID Prescribed by: ARLINE HENDERSON on 01/17/21 1456 Gabapentin 300 Mg/6 Ml Solution, 300 MG PO TID Take 1 tablet on day 1, take 1 tablet twice daily on day 2, take 1 tablet 3 times daily starting on day 3 and then 3 times daily thereafter Prescribed by: ARLINE HENDERSON on 01/17/21 1456 Hydrocodone/Acetaminophen 1 Each Tablet, 1 EACH PO Q4H Prescribed by: EMILIANO HELMS on 06/17/201648 Ondansetron 8 Mg Tab.rapdis, 8 MG PO Q6H PRN for NAUSEA/VOMITING Prescribed by: EMILIANO HELMS on 06/17/201648 Patient Home Medication List Home Medication List Reviewed: Yes Review of Systems Constitutional: see HPI EENTM: no symptoms reported Respiratory: no symptoms reported, dyspnea on exertion Gastrointestinal: no symptoms reported Genitourinary: other (Darker than normal urine) Musculoskeletal: joint pain (Bilateral foot pain and numbness) Skin: no symptoms reported Psychiatric/Neurological: Paresthesia (Bilateral feet) All Other Systems Reviewed Negative Unless Noted: Yes Past Ilqjjdu-Imhobk-Hdzhgv Hx Patient Social History Alcohol Use: Regular Use Number of Drinks Today: AA Alcohol Beverage of Choice: Beer Type Used: Cigarettes 2nd Hand Smoke Exposure: Yes Recent Infectious Disease Expo: No Recent Hopitalizations: No Immunizations Up To Date Tetanus Booster (TDap): More than 5yrs Seasonal Allergies Seasonal Allergies: No Past Medical History Surgeries: Yes (rotator cuff) Orthopedic Respiratory: No Cardiac: No Neurological: No Reproductive Disorders: No Genitourinary: No Gastrointestinal: No Musculoskeletal: No Endocrine: No HEENT: No Cancer: No Psychosocial: Yes Anxiety Integumentary: No Blood Disorders: No Family Medical History Cardiovascular disease (paternal grandfather) Neoplasm (mother throat and uterine cancer ) Psychosocial problem (maternal grandmother) No Pertinent Family Hx Physical Exam Vital Signs Vital Signs - First Documented 01/17/21 13:43 Temp 36.3 Pulse 97 Resp 18 B/P (MAP) 124/90 (101) Pulse Ox 99 Capillary Refill : Less Than 3 Seconds Height, Weight, BMI Height: 5'11.00" Weight: 200lbs. 6.0oz. 90.161643oq; 33.00 BMI Method:Stated General Appearance: WD/WN, no apparent distress Neck: full range of motion Cardiovascular: regular rate, rhythm Respiratory: lungs clear, normal breath sounds, no respiratory distress, no accessory muscle use Gastrointestinal: non tender, soft Hips: bilateral hip normal range of motion, bilateral hip no evidence of injury Legs: bilateral leg non-tender, bilateral leg normal inspection, bilateral leg normal range of motion, bilateral leg no evidence of injury Knees: bilateral knee non-tender, bilateral knee normal inspection, bilateral knee normal range of motion, bilateral knee no evidence of injury Ankles: bilateral ankle non-tender, bilateral ankle normal inspection, bilateral ankle normal range of motion, bilateral ankle no evidence of injury Feet: bilateral foot pain (Bilateral feet are hypersensitive to touch. He has bounding 2+ dorsalis pedis and posterior tibial pulses capillary refill is brisk) Neurologic/Psychiatric: alert, normal mood/affect, oriented x 3 Skin: normal color, warm/dry Progress/Results/Core Measures Results/Orders Lab Results Laboratory Tests Test 01/17/21 13:55 01/17/21 14:07 Range/Units Sodium Level 136 135-145 MMOL/L Potassium Level 3.5 L 3.6-5.0 MMOL/L Chloride Level 98 98-107 MMOL/L Carbon Dioxide Level 24 21-32 MMOL/L Anion Gap 14 5-14 MMOL/L Blood Urea Nitrogen 4 L 7-18 MG/DL Creatinine 0.66 0.60-1.30 MG/DL Estimat Glomerular Filtration Rate > 60 BUN/Creatinine Ratio 6 Glucose Level 97 70-105 MG/DL Calcium Level 8.9 8.5-10.1 MG/DL Total Bilirubin 2.5 H 0.1-1.0 MG/DL Direct Bilirubin 1.2 H 0.0-0.3 MG/DL Indirect Bilirubin 1.3 MG/DL Aspartate Amino Transf (AST/SGOT) 95 H 5-34 U/L Alanine Aminotransferase (ALT/SGPT) 25 0-55 U/L Alkaline Phosphatase 95 40-136 U/L Total Protein 7.7 6.4-8.2 GM/DL Albumin 3.3 3.2-4.5 GM/DL Urine Color ORANGE Urine Clarity CLEAR Urine pH 6.5 5-9 Urine Specific [place] 1.025 H 1.016-1.022 Urine Protein 1+ H NEGATIVE Urine Glucose (UA) TRACE H NEGATIVE Urine Ketones TRACE H NEGATIVE Urine Nitrite POSITIVE H NEGATIVE Urine Bilirubin 2+ H NEGATIVE Urine Urobilinogen >=8.0 < = 1.0 MG/DL Urine Leukocyte Esterase NEGATIVE NEGATIVE Urine RBC (Auto) TRACE-I NEGATIVE Urine RBC NONE /HPF Urine WBC 2-5 /HPF Urine Squamous Epithelial Cells 2-5 /HPF Urine Crystals NONE /LPF Urine Bacteria TRACE /HPF Urine Casts NONE /LPF Urine Mucus MODERATE H /LPF Urine Culture Indicated NO My Orders Orders - ARLINE HENDERSON MD Basic Metabolic Panel (01/17/21 13:53) Ua Culture If Indicated (01/17/21 13:53) Liver Panel (01/17/21 13:55) Vital Signs/I&O 01/17/21 13:43 Temp 36.3 Pulse 97 Resp 18 B/P (MAP) 124/90 (101) Pulse Ox 99 Blood Pressure Mean: 101 Progress Progress Note : Time: 14:57 Progress Note Patient found to have elevation in his total bilirubin on Chem-12. A little bit of elevation in his liver functions. He does have evidence of a nitrite positive urinary tract infection. Patient admits to at least a sixpack daily and a couple of shots of alcohol daily. He does not have a physician I have strongly encouraged him to follow-up with [facility]. He states that he will go to the clinic in [place]. I am going to start him on gabapentin 3 times daily for the neuropathic pain in his lower extremities. He does not have evidence on chemistry of hyperglycemia. I do not believe this is caused by elevated blood sugars. 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 Patient verbalizes understanding and is agreeable with the plan of care. All questions are sought and answered. Patient is stable for discharge. I did send a prescription for Keflex to the [facility] in [place] for his urinary tract infection. Departure Impression Primary Impression: Urinary tract infection Qualified Codes: N30.00 - Acute cystitis without hematuria Additional Impressions: Hyperbilirubinemia Paresthesia of both lower extremities Disposition: 01 HOME, SELF-CARE Condition: Stable Departure-Patient Inst. Decision time for Depature: 14:50 Referrals: [facility]/LAMBERTO ORNELAS,LOCAL PHYSICIAN (PCP) Primary Care Physician Patient Instructions: Effects of Alcohol on Your Health, LOCAL PHYSICIAN LIST Add. Discharge Instructions: Start the gabapentin, daily to help with the pain in your lower extremities. Try and cut down significantly on your daily alcohol use. Take the antibiotics for the urinary tract infection for the next week. Follow-up with [facility] for further evaluation of your chronic liver disease. Come back to the emergency room for any new, concerning or emergent complaints. Scripts Gabapentin (Gabapentin) 300 Mg/6 Ml Solution 300 MG PO TID, #60 EA Take 1 tablet on day 1, take 1 tablet twice daily on day 2, take 1 tablet 3 times daily starting on day 3 and then 3 times daily thereafter Prov: ARLINE HENDERSON MD 01/17/21 Cephalexin (Cephalexin) 500 Mg Tablet 500 MG PO TID, #21 TAB Prov: ARLINE HENDERSON MD 01/17/21 ARLINE HENDERSON MD January 17, 2021 13:58
[2021-01-17 14:11] LABS: CLARITY,URINE CLEAR; COLOR,URINE ORANGE; GLUCOSE, URINE (UA) TRACE (NEGATIVE); KETONES,URINE TRACE (NEGATIVE); LEUKOCYTE ESTERASE ,URINE NEGATIVE (NEGATIVE); NITRITE,URINE POSITIVE (NEGATIVE); PH,URINE 6.5 (5-9); PROTEIN,URINE 1+ (NEGATIVE)
[2021-01-17 14:15] LABS: ALBUMIN 3.3 GM/DL (3.2-4.5)
[2021-01-17 14:16] LABS: CHLORIDE 98 MMOL/L (98-107); POTASSIUM 3.5 MMOL/L (3.6-5.0); SODIUM 136 MMOL/L (135-145)
[2021-01-17 14:17] LABS: CALCIUM 8.9 MG/DL (8.5-10.1)
[2021-01-17 14:18] LABS: GLUCOSE 97 MG/DL (70-105); TOTAL PROTEIN 7.7 GM/DL (6.4-8.2)
[2021-01-17 14:19] LABS: CARBON DIOXIDE 24 MMOL/L (21-32)
[2021-01-17 14:19] LABS: BACTERIA,URINE TRACE /HPF; BILIRUBIN,URINE 2+ (NEGATIVE)
[2021-01-17 14:20] LABS: BILIRUBIN,TOTAL 2.5 MG/DL (0.1-1.0)
[2021-01-17 14:21] LABS: ALKALINE PHOSPHATASE 95 U/L (40-136)
[2021-01-17 14:22] LABS: CREATININE SERUM 0.66 MG/DL (0.60-1.30); GFR ESTIMATED > 60
[2021-01-17 14:23] LABS: BILIRUBIN,DIRECT 1.2 MG/DL (0.0-0.3); BILIRUBIN,INDIRECT 1.3 MG/DL; BUN/CREATININE RATIO 6
[2021-01-17 14:25] LABS: ALANINE AMINOTRANSFERASE 25 U/L (0-55)
[2021-01-17] MEDS ORDERED: CEPH500T PO (14:56)
[2021-01-17] MEDS ORDERED: GABA300S2 PO (14:56)
[2021-01-17 14:59] VITALS: BP 124/90
== END 2021-01-17 14:58 | disposition home or self-care (01) ==
LOC: EDUNIT# 13:29 → ER 13:31
DX: G62.9 Polyneuropathy, unspecified (principal); E80.6 Other disorders of bilirubin metabolism; N39.0 Urinary tract infection, site not specified; Z77.22 Contact with and (suspected) exposure to environmental tobacco smoke (acute) (chronic)
CPT/HCPCS: 36415; 80048; 80076; 81000; 99283

== ENCOUNTER 2021-09-09 16:40 | Inpatient (IN) | payer SELFPAY ==
[~2021-09-09] VITALS: Ht 180 cm; Wt 85.9 kg
[~2021-09-09 16:40] MED LIST changes: +CEPH500T PO; +CLIN-144 PO; -CLIN300C12 PO; +GABA300S2 PO
[2021-09-09] MEDS ORDERED: NS IV 1000 ML 1,000 ML IV SCH (17:00)
--- NOTE | 2021-09-09 17:09 | ED Abdominal Pain ---
General Chief Complaint: General Problems/Pain Stated Complaint: STOMACH PAIN, LEG NUMBNESS Source of Information: Patient Exam Limitations: No Limitations History of Present Illness Date Seen by Provider: Sep 09, 2021 Time Seen by Provider: 16:42 Initial Comments Patient to the ER by private conveyance with his significant other and chief complaint of right upper quadrant abdominal pain, feeling jaundice in his eyes, constipation, 20 pound weight loss over the last 3 weeks. He used to drink about a 12 pack a day but he says he slowed way down. He still smokes half pack cigarettes and denies any recreational drug use. No history of pancreatitis. No abdominal surgeries. Does not follow with a doctor and has not had this worked up yet. He has had problems with swelling in his legs causing tingling and burning sensation in his toe tips. He has a significant family history of diabetes but does not himself know if he has diabetes or peripheral neuropathy. Allergies and Home Medications Allergies Coded Allergies: clindamycin (Verified Allergy, Severe, 09/24/15) Patient Home Medication List Home Medication List Reviewed: Yes Amoxicillin/Potassium Clav (Augmentin 875-125 Tablet) 1 Each Tablet, 1 EACH PO BID Prescribed by: EMILIANO HELMS on 06/17/201648 Cephalexin (Cephalexin) 500 Mg Tablet, 500 MG PO TID Prescribed by: ARLINE HENDERSON on 01/17/21 145 Gabapentin (Gabapentin) 300 Mg/6 Ml Solution, 300 MG PO TID Prescribed by: ARLINE HENDERSON on 01/17/21 145 Hydrocodone/Acetaminophen (Hydrocodone-Acetamin 5-325 mg) 1 Each Tablet, 1 EACH PO Q4H Prescribed by: EMILIANO HELMS on 06/17/201648 Ondansetron (Ondansetron Odt) 8 Mg Tab.rapdis, 8 MG PO Q6H PRN for NAUSEA/VOMITING Prescribed by: EMILIANO HELMS on 06/17/201648 Review of Systems Review of Systems Constitutional: No chills, No diaphoresis EENTM: No Blurred Vision, No Double Vision Respiratory: Denies Cough, Denies Orthopnea Cardiovascular: Denies Chest Pain, Denies Lightheadedness Gastrointestinal: See HPI, Abdomen Distended, Abdominal Pain, Constipated; Denies Diarrhea; Nausea; Denies Vomiting Genitourinary: Denies Burning, Denies Discharge Musculoskeletal: No back pain, No joint pain Skin: No change in color, No pruritus, No rash Psychiatric/Neurological: Denies Headache, Denies Numbness All Other Systems Reviewed Negative Unless Noted: Yes Past Bsjigxo-Aafyfh-Xhdeim Hx Patient Social History Tobacco Use?: Yes Tobacco type used: Cigarettes Smoking Status: Current Everyday Smoker Use of E-Cig and/or Vaping dev: No Substance use?: No Alcohol Use?: Yes Alcohol type: Beer Immunizations Up To Date Tetanus Booster (TDap): More than 5yrs Seasonal Allergies Seasonal Allergies: No Past Medical History Surgeries: Yes (rotator cuff) Orthopedic Respiratory: No Cardiac: No Neurological: No Reproductive Disorders: No Genitourinary: No Gastrointestinal: No Musculoskeletal: No Endocrine: No HEENT: No Cancer: No Psychosocial: Yes Anxiety Integumentary: No Blood Disorders: No Family Medical History Cardiovascular disease (paternal grandfather) Neoplasm (mother throat and uterine cancer ) Psychosocial problem (maternal grandmother) No Pertinent Family Hx Physical Exam Vital Signs Vital Signs - First Documented 09/09/21 16:45 Temp 37.0 Pulse 107 Resp 18 B/P (MAP) 134/94 (107) Pulse Ox 97 O2 Delivery Room Air Capillary Refill : Height/Weight/BMI Height: 5'11.00" Weight: 200lbs. 6.0oz. [id number]; 33.00 BMI Method:Stated General Appearance: mild distress (Tachycardic), other (Chronically ill) HEENT: PERRL/EOMI, TMs normal, pharynx normal, other (No icterus noted) Neck: full range of motion, supple, normal inspection Respiratory: lungs clear, normal breath sounds, no respiratory distress, no accessory muscle use Cardiovascular: normal peripheral pulses, regular rate, rhythm Peripheral Pulses: 2+ Dorsalis Pedis (R), 2+ Left Dors-Pedis (L), 2+ Radial Pulses (R), 2+ Radial Pulses (L) Gastrointestinal: soft, tenderness (Right upper quadrant with Llamas sign), hepatomegaly Extremities: normal range of motion, normal inspection, normal capillary refill, pedal edema (1+ bilateral pedal edema) Neurologic/Psychiatric: alert, normal mood/affect, oriented x 3 Skin: normal color, warm/dry, other (Brown pustular acne on the back and a blanchable berumen angioma on the left hand dorsum) Progress/Results/Core Measures Results/Orders Lab Results Laboratory Tests Test 09/09/21 17:01 09/09/21 17:06 Range/Units Urine Color RED H Urine Clarity CLEAR Urine pH 6.5 5-9 Urine Specific [place] 1.020 1.016-1.022 Urine Protein 1+ H NEGATIVE Urine Glucose (UA) 1+ H NEGATIVE Urine Ketones TRACE H NEGATIVE Urine Nitrite POSITIVE H NEGATIVE Urine Bilirubin 3+ H NEGATIVE Urine Urobilinogen >=8.0 < = 1.0 MG/DL Urine Leukocyte Esterase TRACE H NEGATIVE Urine RBC (Auto) NEGATIVE NEGATIVE Urine RBC 10-25 H /HPF Urine WBC 5-10 H /HPF Urine Squamous Epithelial Cells 2-5 /HPF Urine Crystals NONE /LPF Urine Bacteria MODERATE H /HPF Urine Casts NONE /LPF Urine Mucus LARGE H /LPF Urine Culture Indicated YES Urine Opiates Screen NEGATIVE NEGATIVE Urine Oxycodone Screen NEGATIVE NEGATIVE Urine Methadone Screen NEGATIVE NEGATIVE Urine Propoxyphene Screen NEGATIVE NEGATIVE Urine Barbiturates Screen NEGATIVE NEGATIVE Ur Tricyclic Antidepressants Screen NEGATIVE NEGATIVE Urine Phencyclidine Screen NEGATIVE NEGATIVE Urine Amphetamines Screen NEGATIVE NEGATIVE Urine Methamphetamines Screen NEGATIVE NEGATIVE Urine Benzodiazepines Screen NEGATIVE NEGATIVE Urine Cocaine Screen NEGATIVE NEGATIVE Urine Cannabinoids Screen NEGATIVE NEGATIVE White Blood Count 8.2 4.3-11.0 10^3/uL Red Blood Count 3.24 L 4.30-5.52 10^6/uL Hemoglobin 11.6 L 13.3-17.7 g/dL Hematocrit 33 L 40-54 % Mean Corpuscular Volume 103 H 80-99 fL Mean Corpuscular Hemoglobin 36 H 25-34 pg Mean Corpuscular Hemoglobin Concent 35 32-36 g/dL Red Cell Distribution Width 17.2 H 10.0-14.5 % Platelet Count 135 130-400 10^3/uL Mean Platelet Volume 10.2 9.0-12.2 fL Immature Granulocyte % (Auto) 0 % Neutrophils (%) (Auto) 71 42-75 % Lymphocytes (%) (Auto) 18 12-44 % Monocytes (%) (Auto) 8 0-12 % Eosinophils (%) (Auto) 1 0-10 % Basophils (%) (Auto) 1 0-10 % Neutrophils # (Auto) 5.8 1.8-7.8 10^3/uL Lymphocytes # (Auto) 1.5 1.0-4.0 10^3/uL Monocytes # (Auto) 0.7 0.0-1.0 10^3/uL Eosinophils # (Auto) 0.1 0.0-0.3 10^3/uL Basophils # (Auto) 0.1 0.0-0.1 10^3/uL Immature Granulocyte # (Auto) 0.0 0.0-0.1 10^3/uL Percent Immature Platelet Fraction 5.0 0.0-7.6 % Prothrombin Time 21.3 H 12.2-14.7 SEC INR Comment 1.8 H 0.8-1.4 Activated Partial Thromboplast Time 58 H 24-35 SEC Sodium Level 133 L 135-145 MMOL/L Potassium Level 3.0 L 3.6-5.0 MMOL/L Chloride Level 93 L 98-107 MMOL/L Carbon Dioxide Level 29 21-32 MMOL/L Anion Gap 11 5-14 MMOL/L Blood Urea Nitrogen 6 L 7-18 MG/DL Creatinine 0.64 0.60-1.30 MG/DL Estimat Glomerular Filtration Rate 124 BUN/Creatinine Ratio 9 Glucose Level 102 70-105 MG/DL Calcium Level 8.1 L 8.5-10.1 MG/DL Corrected Calcium 9.1 8.5-10.1 MG/DL Magnesium Level 1.7 1.6-2.4 MG/DL Total Bilirubin 6.6 H 0.1-1.0 MG/DL Aspartate Amino Transf (AST/SGOT) 137 H 5-34 U/L Alanine Aminotransferase (ALT/SGPT) 35 0-55 U/L Alkaline Phosphatase 121 40-136 U/L C-Reactive Protein High Sensitivity 2.98 H 0.00-0.50 MG/DL Total Protein 8.2 6.4-8.2 GM/DL Albumin 2.7 L 3.2-4.5 GM/DL Lipase 25 8-78 U/L My Orders Orders - CHRISTAL PARKER Ed Iv/Invasive Line Start (09/09/21 16:57) Ns Iv 1000 Ml (Sodium Chloride 0.9%) (09/09/21 17:00) Ua Culture If Indicated (09/09/21 16:57) Cbc With Automated Diff (09/09/21 16:57) Comprehensive Metabolic Panel (09/09/21 16:57) Hs C Reactive Protein (09/09/21 16:57) Lipase (09/09/21 16:57) Drug Screen Stat (Urine) (09/09/21 16:57) Alcohol (09/09/21 16:57) Ct Abdomen/Pelvis W (09/09/21 16:57) Protime With Inr (09/09/21 17:11) Partial Thromboplastin Time (09/09/21 17:11) Blood Culture (09/09/21 17:11) Iohexol Injection (Omnipaque 350 Mg/Ml 1 (09/09/21 17:15) Received Contrast (Hold Metformin- Contr (09/09/21 17:15) Ns (Ivpb) (Sodium Chloride 0.9% Ivpb Bag (09/09/21 17:15) Magnesium (09/09/21 17:06) Urine Culture (09/09/21 17:01) Medications Given in ED Current Medications Medications Dose Ordered Sig/Magalie Route Start Time Stop Time Status Last Admin Dose Admin Iohexol 100 ml ONCE ONCE IV 09/09/21 17:15 09/09/21 17:16 DC 09/09/21 17:27 100 ML Sodium Chloride 100 ml ONCE ONCE IV 09/09/21 17:15 09/09/21 17:16 DC 09/09/21 17:27 80 ML Vital Signs/I&O 09/09/21 16:45 Temp 37.0 Pulse 107 Resp 18 B/P (MAP) 134/94 (107) Pulse Ox 97 O2 Delivery Room Air Progress Progress Note : Time: 17:09 Progress Note Concern for a pancreatic, ductal, gallbladder, Possibly hepatic process malignant. Plan to get labs and a CT with IV contrast given a liter of fluids to flush out the contrast. Patient states his pain is okay as long as he lays still. Infectious processes possible as well. We will get some blood cultures as he is tachycardic. Diagnostic Imaging Diagonstic Imaging: CT Plain Films/CT/US/NM/MRI: abdomen, pelvis Comments [facility]. [place], [place] NAME: KATIUSKA [facility]IN[facility] REC#: [id number] PT STATUS: REG ER : 1985 PHYSICIAN: CHRISTAL PARKER MD ADMIT DATE: 09/09/21/ER Draft Date of Exam:09/09/21 CT ABDOMEN/PELVIS W PROCEDURE: CT abdomen and pelvis with contrast. TECHNIQUE: Multiple contiguous axial images were obtained through the abdomen and pelvis after administration of intravenous contrast. Auto Exposure Controls were utilized during the CT exam to meet ALARA standards for radiation dose reduction. All CT scans use one or more of the following dose optimizing techniques: automated exposure control, MA and/or KvP adjustment based on patient size and exam type or iterative reconstruction. INDICATION: Bilateral leg tingling, right-sided abdominal pain and hematuria as well as weight loss. COMPARISON: 06/17/2020. Fatty hepatomegaly persists and is not significantly changed. The spleen is mildly enlarged, slightly increased in size but nonfocal. There is no solid or cystic renal mass. There is no hydroureteronephrosis. No radiopaque stone at this postcontrast study. The urinary bladder was nearly empty but nonfocal. There is no intrahepatic or extrahepatic bile duct dilatation. The gallbladder appears normal. The pancreas and its duct unremarkable. There is stranding of the pericolonic fat most notably along the ascending and descending colon. No substantial bowel wall thickening. Aortoiliac and mesenteric vessels patent and nonaneurysmal. The bony structures nonacute. There is no abdominopelvic, mesenteric or retroperitoneal lymphadenopathy. IMPRESSION: 1. Chronic fatty hepatomegaly. Increased mild splenomegaly. Nonspecific stranding of the pericolonic fat without colonic wall thickening, obstruction, perforation or abscess. 2. No acute biliary abnormality with unremarkable pancreas. 3. Nonfocal unobstructed urinary tracts. Dictated on workstation # [id number] Dict: 09/09/21 1736 Trans: 09/09/21 1748 [facility] [id number] Interpreted by: TEJA METZ Electronically signed by: Reviewed: Reviewed by Ca Departure Communication (Admissions) Time/Spoke to Admitting Phy: 18:[address] Maher and he will decide whether to do steroids in the morning. He would like to consult with general surgery. Hepatic panel. Ultrasound gallbladder in the morning. N.p.o. at midnight. Time/Spoke to Consulting Phy: 18:[address] Wagner, general surgery he agrees to consult on the case. Impression Primary Impression: Acute alcoholic hepatitis Disposition: ADMITTED INPATIENT Condition: Stable Admissions Decision to Admit Reason: Admit from ER (General) Decision to Admit/Date: Sep 09, 2021 Time/Decision to Admit Time: 18:22 Departure-Patient Inst. Referrals: NO,LOCAL PHYSICIAN (PCP/Family) Primary Care Physician CHRISTAL PARKER Sep 09, 2021 17:09
[2021-09-09] MEDS ORDERED: HOLD METFORMIN - RECEIVED CONTRAST 20 ML VIAL IV SCH (17:15)
[2021-09-09] MEDS ORDERED: NS 100 ML (IVPB) BAG IV ONE (17:15)
[2021-09-09] MEDS ORDERED: IOHEXOL 350 MG/ML 100 ML (OMNIPAQUE 350) VIAL IV ONE (17:15)
[2021-09-09 17:17] LABS: EOSINOPHILS # (AUTO) 0.1 10^3/uL (0.0-0.3); EOSINOPHILS % (AUTO) 1 % (0-10); HEMATOCRIT 33 % (40-54); HEMOGLOBIN 11.6 g/dL (13.3-17.7); MEAN CORPUSCULAR HEMOGLOBIN 36 pg (25-34); MEAN CORPUSCULAR HGB CONC 35 g/dL (32-36); MEAN CORPUSCULAR VOLUME 103 fL (80-99)
[2021-09-09 17:17] LABS: CLARITY,URINE CLEAR; COLOR,URINE RED; GLUCOSE, URINE (UA) 1+ (NEGATIVE); KETONES,URINE TRACE (NEGATIVE); LEUKOCYTE ESTERASE ,URINE TRACE (NEGATIVE); NITRITE,URINE POSITIVE (NEGATIVE); PH,URINE 6.5 (5-9); PROTEIN,URINE 1+ (NEGATIVE)
[2021-09-09 17:19] LABS: BASOPHILS # (AUTO) 0.1 10^3/uL (0.0-0.1); BASOPHILS % (AUTO) 1 % (0-10); LYMPHOCYTES # (AUTO) 1.5 10^3/uL (1.0-4.0); LYMPHOCYTES % (AUTO) 18 % (12-44); MEAN PLATELET VOLUME 10.2 fL (9.0-12.2); MONOCYTES # (AUTO) 0.7 10^3/uL (0.0-1.0); MONOCYTES % (AUTO) 8 % (0-12); NEUTROPHILS # (AUTO) 5.8 10^3/uL (1.8-7.8); NEUTROPHILS % (AUTO) 71 % (42-75); PLATELET COUNT 135 10^3/uL (130-400); WHITE BLOOD COUNT 8.2 10^3/uL (4.3-11.0)
[2021-09-09 17:35] LABS: INR 1.8 (0.8-1.4); PROTHROMBIN TIME PATIENT 21.3 SEC (12.2-14.7)
[2021-09-09 17:38] LABS: ALBUMIN 2.7 GM/DL (3.2-4.5); CHLORIDE 93 MMOL/L (98-107); SODIUM 133 MMOL/L (135-145)
[2021-09-09 17:40] LABS: CALCIUM 8.1 MG/DL (8.5-10.1)
[2021-09-09 17:40] LABS: AMPHETAMINE SCREEN, URINE NEGATIVE (NEGATIVE); BARBITURATE SCREEN URINE NEGATIVE (NEGATIVE); BENZODIAZEPINES SCREEN URINE NEGATIVE (NEGATIVE); CANNABINOID SCREEN, URINE NEGATIVE (NEGATIVE); COCAINE SCREEN URINE NEGATIVE (NEGATIVE); METHADONE STAT NEGATIVE (NEGATIVE); METHAMPHETAMINE SCREEN URINE S NEGATIVE (NEGATIVE); OPIATE SCREEN URINE NEGATIVE (NEGATIVE); OXYCODONE STAT NEGATIVE (NEGATIVE); PROPOXYPHENE STAT NEGATIVE (NEGATIVE); TRICYCLIC ANTIDEPRESSANTS SCRE NEGATIVE (NEGATIVE)
[2021-09-09 17:41] LABS: GLUCOSE 102 MG/DL (70-105); TOTAL PROTEIN 8.2 GM/DL (6.4-8.2)
[2021-09-09 17:42] LABS: CARBON DIOXIDE 29 MMOL/L (21-32)
[2021-09-09 17:43] LABS: BILIRUBIN,TOTAL 6.6 MG/DL (0.1-1.0)
[2021-09-09 17:44] LABS: ALKALINE PHOSPHATASE 121 U/L (40-136)
[2021-09-09 17:45] LABS: CREATININE SERUM 0.64 MG/DL (0.60-1.30); GFR ESTIMATED 124
[2021-09-09 17:46] LABS: BUN/CREATININE RATIO 9
[2021-09-09 17:47] LABS: ALANINE AMINOTRANSFERASE 35 U/L (0-55); MAGNESIUM 1.7 MG/DL (1.6-2.4)
--- NOTE | 2021-09-09 17:48 | Diagnostic Imaging Report ---
PROCEDURE: CT abdomen and pelvis with contrast. TECHNIQUE: Multiple contiguous axial images were obtained through the abdomen and pelvis after administration of intravenous contrast. Auto Exposure Controls were utilized during the CT exam to meet ALARA standards for radiation dose reduction. All CT scans use one or more of the following dose optimizing techniques: automated exposure control, MA and/or KvP adjustment based on patient size and exam type or iterative reconstruction. INDICATION: Bilateral leg tingling, right-sided abdominal pain and hematuria as well as weight loss. COMPARISON: 06/17/2020. Fatty hepatomegaly persists and is not significantly changed. The spleen is mildly enlarged, slightly increased in size but nonfocal. There is no solid or cystic renal mass. There is no hydroureteronephrosis. No radiopaque stone at this postcontrast study. The urinary bladder was nearly empty but nonfocal. There is no intrahepatic or extrahepatic bile duct dilatation. The gallbladder appears normal. The pancreas and its duct unremarkable. There is stranding of the pericolonic fat most notably along the ascending and descending colon. No substantial bowel wall thickening. Aortoiliac and mesenteric vessels patent and nonaneurysmal. The bony structures nonacute. There is no abdominopelvic, mesenteric or retroperitoneal lymphadenopathy. IMPRESSION: 1. Chronic fatty hepatomegaly. Increased mild splenomegaly. Nonspecific stranding of the pericolonic fat without colonic wall thickening, obstruction, perforation or abscess. 2. No acute biliary abnormality with unremarkable pancreas. 3. Nonfocal unobstructed urinary tracts. Dictated by: Dictated on workstation # [id number]
[2021-09-09 17:49] LABS: LIPASE 25 U/L (8-78)
[2021-09-09 17:50] LABS: BACTERIA,URINE MODERATE /HPF; BILIRUBIN,URINE 3+ (NEGATIVE)
--- NOTE | 2021-09-09 19:48 | CONSULTATION REPORT ---
DATE OF SERVICE: HISTORY OF PRESENT ILLNESS: The patient is a 36-year-old male who presented to [facility] Emergency Department with right upper abdominal quadrant pain, jaundice, constipation as well as weight loss in the past 3 weeks. He has a longstanding history of alcohol abuse and states that he drank 12-pack of beer every day for many years; however, states that he has decreased in recent months. He also does smoke on a daily basis. He does not follow. He does not have any primary care physician and has not been worked up. His laboratory work did show a significant elevation of total bilirubin at [address] scan did show hepatomegaly, likely consistent with hepatitis. Also, his albumin is low. Bilirubin is elevated and INR within normal limits; however, he does have his modified Child-Rodriguez classification puts him at a grade B. There were no signs of any stones or any ductal dilatation. PAST MEDICAL HISTORY: Alcohol abuse. PAST SURGICAL HISTORY: Rotator cuff. ALLERGIES: CLINDAMYCIN. MEDICATIONS: Augmentin b.i.d., cephalexin 500 mg t.i.d., gabapentin 300 mg t.i.d., hydrocodone p.r.n., Zofran p.r.n. SOCIAL HISTORY: Positive for heavy alcohol abuse for the past 15 years with a 12-pack of beer daily and current every day smoker for the past 15 years. FAMILY HISTORY: Mother, uterine cancer. VITAL SIGNS: Temperature 37.0, blood pressure 134/94, pulse 107, respirations 18, pulse ox 97% on room air. REVIEW OF SYSTEMS: Well-nourished male currently in no acute distress. He is not experiencing any shortness of breath or difficulty breathing. No chest pain, palpitations, diaphoresis. He states some mild abdominal fullness. He also states that he has lost his appetite, however, he is not experiencing any nausea nor vomiting. He does report constipation. Does not report any red blood per rectum nor any dark tarry stools. No fever, chills; however, states that he has lost a significant amount of weight in the past several months. PHYSICAL EXAMINATION: CHEST: Few scattered wheezes bilaterally. HEART: Regular, no murmurs. EXTREMITIES: No lower extremity edema, negative Homans sign. HEENT: No scleral icterus. NECK: No cervical lymphadenopathy. ABDOMEN: Soft, slightly distended, no peritonitis. No hernias. SKIN: Warm, dry skin as well as scleral jaundice. LABORATORY DATA: WBC 8.2, hemoglobin 11.6, hematocrit 33, platelets of 135, BUN 6, creatinine 0.64. Total bilirubin 6, albumin is 2.7, INR 1.8. ASSESSMENT AND PLAN: A 36-year-old male with liver failure classified as a modified Child-Rodriguez classification grade B. If continues to drink alcohol this does portend a poor prognosis long-term;however, he is young and will need to proceed with the necessary medical compliance and lifestyle changes, which would include cessation of alcohol. Job ID: [id number] DocumentID: [id number] Dictated Date: 09/09/2021 19:23:09 [employer] Date: 09/09/2021 19:47:40 Dictated By: LA NENA SIERRA MD MTDD
[2021-09-09] MEDS ORDERED: ONDANSETRON 4 MG/2 ML (SDV) Z0FRAN IV PRN (21:45)
[2021-09-09] MEDS ORDERED: CATHETER FLUSH 10 ML SYR IV PRN (21:45)
[2021-09-09] MEDS ORDERED: IBUPROFEN 600 MG (MOTRIN) TAB PO PRN (21:45)
[2021-09-09] MEDS ORDERED: fentaNYL INJ 100 MCG/2 ML AMP IV PRN (22:00)
[2021-09-09 22:08] VITALS: BP 126/86
[2021-09-09 22:57] VITALS: BP 116/73
[2021-09-09] MEDS: CATHETER FLUSH 10 ML SYR IV SCH (23:02)
[2021-09-10 03:56] VITALS: BP 112/58
[2021-09-10 06:05] LABS: BASOPHILS # (AUTO) 0.1 10^3/uL (0.0-0.1); BASOPHILS % (AUTO) 1 % (0-10); EOSINOPHILS # (AUTO) 0.1 10^3/uL (0.0-0.3); EOSINOPHILS % (AUTO) 1 % (0-10); HEMATOCRIT 28 % (40-54); HEMOGLOBIN 9.5 g/dL (13.3-17.7); LYMPHOCYTES # (AUTO) 1.5 10^3/uL (1.0-4.0); LYMPHOCYTES % (AUTO) 24 % (12-44); MEAN CORPUSCULAR HEMOGLOBIN 36 pg (25-34); MEAN CORPUSCULAR HGB CONC 34 g/dL (32-36); MEAN CORPUSCULAR VOLUME 105 fL (80-99); MEAN PLATELET VOLUME 10.4 fL (9.0-12.2); MONOCYTES # (AUTO) 0.5 10^3/uL (0.0-1.0); MONOCYTES % (AUTO) 8 % (0-12); NEUTROPHILS # (AUTO) 4.2 10^3/uL (1.8-7.8); NEUTROPHILS % (AUTO) 66 % (42-75); PLATELET COUNT 90 10^3/uL (130-400); WHITE BLOOD COUNT 6.4 10^3/uL (4.3-11.0)
[2021-09-10] MEDS: CATHETER FLUSH 10 ML SYR IV SCH ×2 (06:11→14:17)
[2021-09-10 06:16] LABS: POTASSIUM 3.1 MMOL/L (3.6-5.0)
[2021-09-10 06:17] LABS: CALCIUM 7.6 MG/DL (8.5-10.1)
[2021-09-10 06:21] LABS: CREATININE SERUM 0.6 MG/DL (0.60-1.30)
[2021-09-10 07:18] VITALS: BP 101/63
[2021-09-10 08:35] LABS: ALBUMIN 2.1 GM/DL (3.2-4.5)
[2021-09-10 08:38] LABS: TOTAL PROTEIN 6.5 GM/DL (6.4-8.2)
[2021-09-10 08:40] LABS: BILIRUBIN,TOTAL 5.4 MG/DL (0.1-1.0)
[2021-09-10 08:43] LABS: INR 1.9 (0.8-1.4)
[2021-09-10 08:43] LABS: BILIRUBIN,DIRECT 2.1 MG/DL (0.0-0.3); BILIRUBIN,INDIRECT 3.3 MG/DL
--- NOTE | 2021-09-10 10:05 | Diagnostic Imaging Report ---
PROCEDURE: US Gallbladder. TECHNIQUE: Multiple real-time grayscale images were obtained over the right upper quadrant in various projections. INDICATION: Acute hepatitis. FINDINGS: The liver measures 21 cm. There is hepatopetal flow in the main portal vein. Common bile duct measures 6 mm. There is some gallbladder wall thickening up to 4 mm. There is no cholelithiasis or pericholecystic fluid. The pancreas is largely obscured by bowel gas. The aorta is nonaneurysmal. The IVC is patent. Right kidney is normal. There is no ascites IMPRESSION: Mild hepatomegaly and mild gallbladder wall thickening, otherwise unremarkable right upper quadrant ultrasound. Dictated by: Dictated on workstation # [id number]
--- NOTE | 2021-09-10 11:13 | Progress Note ---
Subjective Date Seen by a Provider: Sep 10, 2021 Time Seen by a Provider: 10:20 Subjective/Events-last exam Patient seen with Dr. Wagner. Patient reports doing ok. Minimal RUQ abdominal pain. Denies any nausea or vomiting. Tolerating diet. Objective Exam Vital Signs Date Time Temp Pulse Resp B/P (MAP) Pulse Ox O2 Delivery O2 Flow Rate FiO2 09/10/21 08:00 96 Room Air 09/10/21 07:18 36.8 81 18 101/63 (76) 96 Room Air 09/10/21 03:56 36.7 89 18 112/58 (76) 96 Room Air 09/09/21 22:57 37.0 97 18 116/73 (87) 99 Room Air 09/09/21 22:08 37.3 95 18 126/86 (99) 100 Room Air 09/09/21 19:30 Room Air 09/09/21 18:52 97 18 142/88 100 Room Air 09/09/21 18:25 85 18 130/84 100 Room Air 09/09/21 16:45 37.0 107 18 134/94 (107) 97 Room Air I & O 09/10/21 07:00 Intake Total 320 ml Balance 320 ml Capillary Refill : General Appearance: No Apparent Distress, WD/WN Neck: Normal Inspection, Supple Respiratory: No Accessory Muscle Use, No Respiratory Distress Cardiovascular: Regular Rate, Rhythm, No Edema Gastrointestinal: normal bowel sounds, soft, tenderness (RUQ) Extremity: Normal Inspection, Normal Range of Motion Neurologic/Psychiatric: Alert, Oriented x3 Skin: Warm/Dry, Jaundice Results Lab Laboratory Tests 09/09/21 17:01: Urine Color REDH, Urine Clarity CLEAR, Urine pH 6.5, Urine Specific [place] 1.020, Urine Protein 1+H, Urine Glucose (UA) 1+H, Urine Ketones TRACEH, Urine Nitrite POSITIVEH, Urine Bilirubin 3+H, Urine Urobilinogen >=8.0, Urine Leukocyte Esterase TRACEH, Urine RBC (Auto) NEGATIVE, Urine RBC 10-25H, Urine WBC 5-10H, Urine Squamous Epithelial Cells 2-5, Urine Crystals NONE, Urine Bacteria MODERATEH, Urine Casts NONE, Urine Mucus LARGEH, Urine Culture Indicated YES, Urine Opiates Screen NEGATIVE, Urine Oxycodone Screen NEGATIVE, Urine Methadone Screen NEGATIVE, Urine Propoxyphene Screen NEGATIVE, Urine Barbiturates Screen NEGATIVE, Ur Tricyclic Antidepressants Screen NEGATIVE, Urine Phencyclidine Screen NEGATIVE, Urine Amphetamines Screen NEGATIVE, Urine Methamphetamines Screen NEGATIVE, Urine Benzodiazepines Screen NEGATIVE, Urine Cocaine Screen NEGATIVE, Urine Cannabinoids Screen NEGATIVE 09/09/21 17:06: White Blood Count 8.2, Red Blood Count 3.24L, Hemoglobin 11.6L, Hematocrit 33L, Mean Corpuscular Volume 103H, Mean Corpuscular Hemoglobin 36H, Mean Corpuscular Hemoglobin Concent 35, Red Cell Distribution Width 17.2H, Platelet Count 135, Mean Platelet Volume 10.2, Immature Granulocyte % (Auto) 0, Neutrophils (%) (Auto) 71, Lymphocytes (%) (Auto) 18, Monocytes (%) (Auto) 8, Eosinophils (%) (Auto) 1, Basophils (%) (Auto) 1, Neutrophils # (Auto) 5.8, Lymphocytes # (Auto) 1.5, Monocytes # (Auto) 0.7, Eosinophils # (Auto) 0.1, Basophils # (Auto) 0.1, Immature Granulocyte # (Auto) 0.0, Percent Immature Platelet Fraction 5.0, Prothrombin Time 21.3H, INR Comment 1.8H, Activated Partial Thromboplast Time 58H, Sodium Level 133L, Potassium Level 3.0L, Chloride Level 93L, Carbon Dioxide Level 29, Anion Gap 11, Blood Urea Nitrogen 6L, Creatinine 0.64, Estimat Glomerular Filtration Rate 124, BUN/Creatinine Ratio 9, Glucose Level 102, Calcium Level 8.1L, Corrected Calcium 9.1, Magnesium Level 1.7, Total Bilirubin 6.6H, Aspartate Amino Transf (AST/SGOT) 137H, Alanine Aminotransferase (ALT/SGPT) 35, Alkaline Phosphatase 121, C-Reactive Protein High Sensitivity 2.98H, Total Protein 8.2, Albumin 2.7L, Lipase 25, Serum Alcohol < 10 09/10/21 05:37: White Blood Count 6.4, Red Blood Count 2.65L, Hemoglobin 9.5L, Hematocrit 28L, Mean Corpuscular Volume 105H, Mean Corpuscular Hemoglobin 36H, Mean Corpuscular Hemoglobin Concent 34, Red Cell Distribution Width 17.6H, Platelet Count 90L, Mean Platelet Volume 10.4, Immature Granulocyte % (Auto) 1, Neutrophils (%) (Auto) 66, Lymphocytes (%) (Auto) 24, Monocytes (%) (Auto) 8, Eosinophils (%) ( Auto) 1, Basophils (%) (Auto) 1, Neutrophils # (Auto) 4.2, Lymphocytes # (Auto) 1.5, Monocytes # (Auto) 0.5, Eosinophils # (Auto) 0.1, Basophils # (Auto) 0.1, Immature Granulocyte # (Auto) 0.0, Prothrombin Time 22.0H, INR Comment 1.9H 09/10/21 05:57: Sodium Level 132L, Potassium Level 3.1L, Chloride Level 97L, Carbon Dioxide Level 25, Anion Gap 10, Blood Urea Nitrogen 9, Creatinine 0.60, Estimat Glomerular Filtration Rate 127, BUN/Creatinine Ratio 15, Glucose Level 88, Calcium Level 7.6L, Total Bilirubin 5.4H, Aspartate Amino Transf (AST/SGOT) 95H, Alanine Aminotransferase (ALT/SGPT) 22, Alkaline Phosphatase 111, Total Protein 6.5, Albumin 2.1L, Direct Bilirubin 2.1H, Indirect Bilirubin 3.3 Assessment/Plan Assessment/Plan Assess & Plan/Chief Complaint A 36 year old male with acute alcoholic hepatitis VSS AST 95 Total bilirubin 5.4 GB U/S showed Mild hepatomegaly and mild gallbladder wall thickening Continue with IV fluids, pain and nausea meds as needed Low-fat diet CHRISTA SOLITARIO [employer] FIN[employer] Sep 10, 2021 11:13
[2021-09-10 11:37] VITALS: BP 112/71
--- NOTE | 2021-09-10 13:18 | History & Physical-Hospitalist ---
History of Present Illness HPI/Chief Complaint This is a 36 yo male who presented to ED yesterday for hematuria, dizziness, jaundice and numbness/tingling in lower extremities. Pt denies past medical hx or use of any medications. Pt reports about 9 months ago he started to have numbness and tingling of his LE, 4 months ago intermittent hematuria, dizziness for the last week and yellowing of skin since yesterday. Pt also reports RUQ abdominal pain and fatigue. Pt states he currently drinks 1-2 drinks every other night for the last month, but prior to that was drinking 12 beers and 10 shots per day for 10 years. Pt confirms chills, cough, SOA, headache and constipation. Pt denies fever, chest pain, N/V/D, urinary frequency or burning. Source: patient Date Seen 09/10/21 Time Seen by a Provider: 08:45 Attending Physician Kareem Wagner MD PCP No,Local Physician Referring Physician Date of Admission Sep 09, 2021 at 18:30 Home Medications & Allergies Home Medications Reviewed patient Home Medication Reconciliation performed by pharmacy medication reconciliations infectious disease technician and/or nursing. Patients Allergies have been reviewed. Allergies Allergies Coded Allergies clindamycin (Verified Allergy, Severe, 09/24/15) Past Egjtcnt-Icbumw-Phusoj Hx Patient Social History Tobacco Use?: Yes Tobacco type used: Cigarettes Smoking Status: Current Everyday Smoker Use of E-Cig and/or Vaping dev: No Substance use?: No Alcohol Use?: Yes Alcohol type: Beer, Hard Liquor Alcohol Frequency: Couple times a week Pt feels they are or have been: No Immunizations Up To Date First/Initial COVID19 Vaccinat: NO Tetanus Booster (TDap): Unknown Seasonal Allergies Seasonal Allergies: No Current Status Advance Directives: No Communicates: Verbally Primary Language: [place] Citizen Preferred Spoken Language: [place] Citizen Is interpretation needed?: No Implanted or Applied Medical D: None Past Medical History Surgeries: Orthopedic Anxiety Blood Disorders: No Family Medical History Cardiovascular disease (paternal grandfather) Neoplasm (mother throat and uterine cancer ) Psychosocial problem (maternal grandmother) No Pertinent Family Hx Review of Systems Constitutional: chills; No fever; malaise EENTM: no symptoms reported Respiratory: cough, short of breath Cardiovascular: No chest pain, No palpitations Gastrointestinal: RUQ, abdominal pain, constipation; No diarrhea, No nausea, No vomiting Genitourinary: No dysuria, No frequency Skin: rash (Dorsal aspect of left hand) Psychiatric/Neurological: Headache, Numbness (bilateral LE), Tingling (bilateral LE) Physical Exam Physical Exam Vital Signs Vital Signs - First Documented 09/09/21 16:45 Temp 37.0 Pulse 107 Resp 18 B/P (MAP) 134/94 (107) Pulse Ox 97 O2 Delivery Room Air Capillary Refill : Height, Weight, BMI Height: 5'11.00" Weight: 200lbs. 6.0oz. 90.379172hm; 26.51 BMI Method:Stated General Appearance: WD/WN, Anxious HEENT: PERRL/EOMI Respiratory: Chest Non Tender, Lungs Clear, Normal Breath Sounds Cardiovascular: Regular Rate, Rhythm, No Murmur Gastrointestinal: Normal Bowel Sounds, Soft, Tenderness (RUQ) Extremity: Normal Capillary Refill, No Pedal Edema Neurologic/Psychiatric: Alert, Oriented x3 Skin: Warm/Dry, Petechia (blanching petechia on dorsum of left hand) Results Results/Procedures Labs Laboratory Tests 09/09/21 17:06 09/10/21 05:37 09/10/21 05:57 Patient resulted labs reviewed. Assessment/Plan Admission Diagnosis Acute alcoholic hepatitis Cirrhosis Reason for Inpatient Admission: Acute alcoholic hepatitis Cirrhosis Assessment and Plan Acute alcoholic hepatitis Cirrhosis RUQ abdominal pain Hematuria Megaloblastic anemia ETOH abuse Acute alcoholic hepatitis -Hepatitis panel to r/o other causes of hepatitis -CT showeed chronic fatty hepatomegaly with mild splenomegaly -AST and bilirubin elevated Cirrhosis RUQ abdominal pain -RUQ Ultrasound showed mild gallbladder wall thickening and hepatomegaly Hematuria -Urine culture pending, pt asymptomatic for UTI Megaloblastic anemia -B12 and folate level pending -Multivitamin -Likely cause of peripheral neuropathy ETOH abuse -Strongly encouraged abstinence JOSE GARCIA MED STUDENT Sep 10, 2021 13:18
[2021-09-10 13:30] VITALS: BP 112/71
[2021-09-10 15:41] VITALS: BP 108/61
[2021-09-11] MEDS ORDERED: MULTIVIT W/MINERALS TAB (THERAGRAN M) PO SCH (07:00)
[2021-09-11] MEDS ORDERED: THIAMINE 100 MG (VITAMIN B-1) TAB PO SCH (07:00)
[2021-09-11] MEDS ORDERED: FOLIC ACID 1 MG TAB PO SCH (09:00)
[2021-09-12 14:01] LABS: HEPATITIS C ANTIBODY C Non-Reactive (Non-Reactive)
== END 2021-09-10 15:50 | disposition home or self-care (01) | DRG 434 ==
LOC: EDUNIT# 16:40 → ER 16:43 → 4TH 18:30
PROVIDERS: ADMIT Internal Medicine; ATTEND Surgery
DX: K70.10 Alcoholic hepatitis without ascites (principal); F10.10 Alcohol abuse, uncomplicated; Y90.0 Blood alcohol level of less than 20 mg/100 ml; K70.30 Alcoholic cirrhosis of liver without ascites; K59.00 Constipation, unspecified; F17.210 Nicotine dependence, cigarettes, uncomplicated; R31.9 Hematuria, unspecified; D53.1 Other megaloblastic anemias, not elsewhere classified; G62.9 Polyneuropathy, unspecified; Z88.1 Allergy status to other antibiotic agents
CPT/HCPCS: 36415; 74177; 76705; 80048; 80053; 80074; 80076; 80306; 80320; 81000; 82607; 82746; 83690; 83735; 85025; 85610; 85730; 86141; 87040; 87088